=== PATIENT | male | born 1960 | race Caucasian/White ===

== ENCOUNTER 2016-12-17 10:12 | Day surgery (SDC) | payer OTHER ==
--- NOTE | ~2016-12-17 | OP ---
Record Of Operation [place] [id number] [place]. [address] NAME: LAILA VILLAFANA JR : 62 STATUS : [place] [facility] [place] PAT#: [id number] AGE: 56 ADM/REG DATE : 12/17/16 MR#: [id number] REPORT SERV DATE: 12/17/16 DICTATED BY: LUIS ALFREDO THOMPSON III DATE: 12/17/16 REPORT STATUS : Draft TRANSCRIBED BY: MODL DATE: 12/17/16 DATE OF PROCEDURE: 12/17/2016 PREOPERATIVE DIAGNOSES: 1. Torn anterior labrum, right shoulder. 2. Rotator cuff tear, right shoulder. POSTOPERATIVE DIAGNOSES: 1. Torn anterior labrum, right shoulder. 2. Rotator cuff tear, right shoulder. SURGICAL PROCEDURE PERFORMED: 1. Arthroscopic debridement of anterior labral tear, right shoulder. 2. Arthroscopic decompression, acromioplasty, and subacromial bursectomy, right shoulder. 3. Mini open repair of torn rotator cuff tendon, right shoulder, using the 5.5 double Healix suture anchor by Mitek x1, with Versalok suture anchor x2, double row technique. SURGEON: Luis Alfredo Thompson M.D. PAINT PREPPER: Silva Larson. ANESTHESIA: General. ANTIBIOTICS: Ancef 2 g. COMPLICATIONS: None. POSITION: Beach chair. MEDICATIONS: Interscalene block for postoperative pain control. CRYSTALLOID: 1250 mL. ESTIMATED BLOOD LOSS: 30 mL. DRAINS: None. COMPLICATIONS: None. PROCEDURE IN DETAIL: The patient was brought to operating room, placed on the table in supine position, and general anesthesia was induced. 2 g was administered intravenously in the operating room. The patient was positioned in beach chair type position and an interscalene block was provided per Anesthesia Department for postoperative pain control. Prior to anesthesia, the right shoulder and upper extremity were sterilely prepped and draped in the usual sterile fashion with a pneumonic arm slater in proper position. Assuring good anesthesia and after called time-out by circulating nurse, a standard Record Of Operation [place] [id number] [place]. [address] NAME: LAILA VILLAFANA JR : 62 STATUS : [place] [facility] [place] PAT#: [id number] AGE: 56 ADM/REG DATE : 12/17/16 MR#: [id number] REPORT SERV DATE: 12/17/16 DICTATED BY: LUIS ALFREDO THOMPSON III DATE: 12/17/16 REPORT STATUS : Draft TRANSCRIBED BY: MODL DATE: 12/17/16 posterior portal was provided to the right glenohumeral joint. It was inflated with sterile normal saline by means of the arthroscopic pump. The articular surface of the glenohumeral joint were normal. The anterior labrum was torn. Posterior, inferior, and superior labrum appeared normal. Biceps tendon appeared normal. The undersurface of rotator cuff complex had a near full-thickness tear to the supraspinatus tendon. The subscapularis tendon was normal. A switching stick was used to create an anterior portal. Biceps tendon was stressed. There were no SLAP tears. 4.5 shaver was used to debride the anterior labral tear. There was some redundant tissue in the superior labrum and this was debrided around the biceps tendon. The biceps tendon was dragging to the joint, it appeared healthy. At this point, a 20-gauge needle was used to iman the torn rotator cuff tendon with a 2-0 Prolene suture pulling it down to the anterior portal. The arthroscope was then switched to the subacromial space. Thickened subacromial bursa was debrided through a lateral portal with a 4.5 shaver. The contour wand was used to debride, cauterize the periosteum on the undersurface of the acromion. High-speed too was used to perform a decompression acromioplasty. At this point, the lateral portal was enlarged with a 15 blade. The deltoid muscle was split and self-retaining Gelpi retractor was placed in the wound. The [employer] was placed underneath the acromion. Further thickened bursal tissue was debrided sharply with a #15 blade. The Prolene suture marked the area of the high-grade tear of the supraspinatus tendon. The tendon was incised and the fibrous tissue was debrided. The bone was roughened up with a rongeur just around the greater tuberosity. An awl was used to create a hole and a 5.5 double Healix Mitek suture anchor was set. These sutures were weaved to the tendon x4 and tied down pulling the tendon to the bone. Each limb was then separately placed Versalok suture anchor and anchored laterally in a double row technique using two Versalok suture anchors. Excess suture was cut. Nice surgical repair was achieved. Thorough irrigation was carried out. The deltoid muscle fascia was repaired with running 0 Vicryl. Subcutaneous tissue was closed with 2-0 Vicryl, and skin was closed using running 4-0 Monocryl. Ports were closed with Monocryl as well. Benzoin and Steri-Strips were applied, followed by Aquacel dressing and a DonJoy sling. The patient tolerated the procedure well, brought to recovery in satisfactory condition. There were no intraoperative, postoperative, or anesthetic complications. All instrument, needle, sponge, and lap counts were correct. TB/MODL Luis Alfredo Thompson III, M.D. / [id number] CC: Mateus Stover III, AMANDA SUZANNE
[~2016-12-17 10:12] MED LIST: CIALIS10 MG; CLARIT10 PO; LISINOPRIL40 MG PO; MULTIPLE VIT PO; PRILO PO
[2016-12-17 11:16] LABS: HEMATOCRIT 45.7 % (40.0-51.0); HEMOGLOBIN 15.9 g/dL (13.6-17.8)
[2016-12-17 11:23] LABS: BUN (BLOOD UREA NITROGEN) 20 MG/DL (6-23); CALCIUM, SERUM 9.2 MG/DL (8.5-10.4); CHLORIDE, SERUM 107 MMOL/L (96-112); CO2 (CARBON DIOXIDE) 27 MMOL/L (24-34); CREATININE 1.11 MG/DL (0.70-1.30); GFR AFRICAN AMERICAN 86 ML/MIN (>=60); GFR NON AFRICAN AMERICAN 74 ML/MIN (>=60); GLUCOSE, SERUM 111 MG/DL (60-99); POTASSIUM, SERUM 4.5 MMOL/L (3.5-5.3); SODIUM, SERUM 141 MMOL/L (135-148)
== END 2016-12-17 23:59 | disposition home or self-care (01) ==
LOC: MSC 10:12
PROVIDERS: Orthopaedic Surgery
PROC: 0XQ Anatomical Regions, Upper Extremities, Repair (ICD-10-PCS; 2016-12-17)
PROC: 0RBJ4ZZ Excision of Right Shoulder Joint, Percutaneous Endoscopic Approach (ICD-10-PCS; principal; 2016-12-17 12:45)
PROC: 0RNJ4ZZ Release Right Shoulder Joint, Percutaneous Endoscopic Approach (ICD-10-PCS; 2016-12-17 12:45)
DX: S43.431A Superior glenoid labrum lesion of right shoulder, initial encounter (principal); S46.011A Strain of muscle(s) and tendon(s) of the rotator cuff of right shoulder, initial encounter; G47.33 Obstructive sleep apnea (adult) (pediatric); I10 Essential (primary) hypertension; E11.9 Type 2 diabetes mellitus without complications; Z79.899 Other long term (current) drug therapy; Z90.49 Acquired absence of other specified parts of digestive tract; Z98.890 Other specified postprocedural states
CPT/HCPCS: 80048; 85014; 85018; 93005; A9270-GY; C1713; J0690; J2250; J2405; J2710; J2795; J3010